=== PATIENT | male | born 1955 | race Caucasian/White ===

== ENCOUNTER 2017-03-18 10:51 | Emergency (ER) | payer MEDICARE, MEDICAID ==
[2017-03-18] MEDS: LIDOCAINE/MYLANTA 40 ML BTL PO (11:51)
[2017-03-18 12:09] LABS: ADD UMIC YES; UR ASCORBIC ACID NEGATIVE (NEGATIVE); UR BILIRUBIN (Dip) NEGATIVE (NEGATIVE); UR BLOOD (Dip) NEGATIVE (NEGATIVE); UR CLARITY CLEAR (CLEAR); UR COLOR YELLOW (YELLOW); UR GLUCOSE (Dip) 3+ mg/dL (NEGATIVE); UR KETONES (Dip) TRACE mg/dL (NEGATIVE); UR LEUKOCYTE ESTERASE (Dip) NEGATIVE Leu/ul (NEGATIVE); UR NITRITE (Dip) NEGATIVE (NEGATIVE); UR RBC 1 /HPF (0-5); UR SPECIFIC GRAVITY (Dip) 1.029 (1.003-1.030); UR TOTAL PROTEIN (Dip) 1+ mg/dl (NEGATIVE); UR UROBILINOGEN (Dip) NEGATIVE (NEGATIVE); UR WBC 5 /HPF (0-5)
[2017-03-18 12:12] LABS: ADD MAN DIFF? NO
[2017-03-18 12:18] LABS: BASOPHIL # 0.1 10^3/ul (0.0-0.1); BASOPHILS % 0.4 % (0.0-2.0); EOSINOPHILS # 0.1 10^3/ul (0.0-0.5); EOSINOPHILS % 0.9 % (0.0-7.0); HEMATOCRIT 41.3 % (42.0-52.0); HEMOGLOBIN 14.6 g/dl (14.0-18.0); LYMPHOCYTES # 2.8 10^3/ul (0.8-2.9); LYMPHOCYTES % 17.9 % (15.0-51.0); MEAN CORPUSCULAR HGB CONC 35.4 g/dl (32.0-37.0); MEAN CORPUSCULAR VOLUME 81.9 fl (82.0-101.0); MEAN PLATELET VOLUME 10.9 fl (7.4-10.4); MONOCYTE # 1.1 10^3/ul (0.3-0.9); NEUTROPHIL # 11.2 10^3/ul (1.6-7.5); NEUTROPHILS % 73.2 % (39.0-77.0); PLATELET COUNT 292 10^3/UL (140-415); RED BLOOD COUNT 5.04 10^6/ul (4.70-6.10); RED CELL DISTRIBUTION WIDTH 11.9 % (11.5-14.5)
[2017-03-18 12:18] LABS: WHITE BLOOD COUNT 15.3 10^3/ul (4.8-10.8)
[2017-03-18 12:37] LABS: ALANINE AMINOTRANSFERASE 39 IU/L (13-69); ALBUMIN 3.8 g/dl (3.3-4.9); ALBUMIN/GLOBULIN RATIO 1.05; ALKALINE PHOSPHATASE 152 IU/L (42-121); ANION GAP 16 (8-16); ASPARTATE AMINO TRANSFERASE 14 IU/L (15-46); BILIRUBIN,INDIRECT 0.2 mg/dl (0-1.1); BILIRUBIN,TOTAL 0.2 mg/dl (0.2-1.3); BLOOD UREA NITROGEN 16 mg/dl (7-20); CALCIUM 9.6 mg/dl (8.4-10.2); CARBON DIOXIDE 23 mmol/L (21-31); CHLORIDE 100 mmol/L (97-110); CREATININE 0.73 mg/dl (0.61-1.24); GLUCOSE 380 mg/dl (70-220); LIPASE 250 U/L (23-300); POTASSIUM 4.5 mmol/L (3.5-5.1); SODIUM 134 mmol/L (135-144); TOTAL PROTEIN 7.4 g/dl (6.1-8.1)
[2017-03-18 12:52] LABS: TROPONIN-I < 0.012 ng/ml (0.00-0.12)
[2017-03-18] MEDS: INSULIN LISPRO 100 UNIT/ML VIAL SC (13:38)
== END 2017-03-18 14:25 | disposition home or self-care (01) ==
LOC: FTE 10:51
DX: E13.8 Other specified diabetes mellitus with unspecified complications (principal); N48.1 Balanitis; R10.13 Epigastric pain; R35.8 Other polyuria
CPT/HCPCS: 80053; 81001; 82962; 83690; 84484; 85025; 87086; 93005; 96372; 99284-25

== ENCOUNTER 2017-09-20 21:30 | Emergency (ER) | payer MEDICARE, OTHER | END 2017-09-20 23:11 | disposition left against medical advice (07) | LOC: FTE 23:11 → E/R 21:30 | DX: Z53.21 Procedure and treatment not carried out due to patient leaving prior to being seen by health care provider (principal) ==

== ENCOUNTER 2017-10-28 21:43 | Inpatient (IN) | payer MEDICARE, OTHER ==
[2017-10-29] MEDS: ALBUTEROL 0.5% (NEB) 2.5 MG/0.5 ML AMP INH (01:33)
[2017-10-29] MEDS: IPRATROPIUM (NEB) 0.5 MG/2.5 ML AMP INH (01:33)
[2017-10-29 01:41] LABS: ADD MAN DIFF? NO
[2017-10-29 01:42] LABS: WHITE BLOOD COUNT 12.2 10^3/ul (4.8-10.8)
[2017-10-29 01:42] LABS: BASOPHIL # 0.1 10^3/ul (0.0-0.1); BASOPHILS % 0.4 % (0.0-2.0); EOSINOPHILS # 0.3 10^3/ul (0.0-0.5); EOSINOPHILS % 2.3 % (0.0-7.0); HEMATOCRIT 41.7 % (42.0-52.0); LYMPHOCYTES # 3.6 10^3/ul (0.8-2.9); LYMPHOCYTES % 29.4 % (15.0-51.0); MEAN CORPUSCULAR HGB CONC 33.6 g/dl (32.0-37.0); MEAN CORPUSCULAR VOLUME 86.3 fl (82.0-101.0); NEUTROPHIL # 7.2 10^3/ul (1.6-7.5); NEUTROPHILS % 59.1 % (39.0-77.0); PLATELET COUNT 284 10^3/UL (140-415); RED BLOOD COUNT 4.83 10^6/ul (4.70-6.10); RED CELL DISTRIBUTION WIDTH 11.9 % (11.5-14.5)
[2017-10-29 02:05] LABS: ALANINE AMINOTRANSFERASE 27 IU/L (13-69); ALBUMIN 3.9 g/dl (3.3-4.9); ALBUMIN/GLOBULIN RATIO 1.21; ALKALINE PHOSPHATASE 85 IU/L (42-121); ANION GAP 13 (8-16); ASPARTATE AMINO TRANSFERASE 18 IU/L (15-46); BILIRUBIN,INDIRECT 0.3 mg/dl (0-1.1); BILIRUBIN,TOTAL 0.3 mg/dl (0.2-1.3); BLOOD UREA NITROGEN 19 mg/dl (7-20); CALCIUM 9.6 mg/dl (8.4-10.2); CARBON DIOXIDE 28 mmol/L (21-31); CHLORIDE 102 mmol/L (97-110); CREATININE 0.83 mg/dl (0.61-1.24); GLUCOSE 216 mg/dl (70-220); POTASSIUM 4.7 mmol/L (3.5-5.1); SODIUM 138 mmol/L (135-144); TOTAL PROTEIN 7.1 g/dl (6.1-8.1)
[2017-10-29 02:15] LABS: TROPONIN-I 0.057 ng/ml (0.000-0.120)
[2017-10-29] MEDS: ASPIRIN 81 MG TAB PO ×2 (03:37→08:55)
[2017-10-29] MEDS: METHYLPREDNISOLONE 125 MG INJ IV ×2 (03:37→08:55)
[2017-10-29] MEDS: SOD CHLORIDE 0.9% 500 ML IV (03:38)
[2017-10-29] MEDS ORDERED: ALBUTEROL/IPRATROPIUM (NEB) 3 ML AMP HHN (06:30)
[2017-10-29] MEDS ORDERED: ACETAMINOPHEN 325 MG TAB PO (06:30)
[2017-10-29] MEDS ORDERED: ROPINIROLE HCL 2 MG PO (06:30)
[2017-10-29] MEDS ORDERED: NACL 0.9% 3 ML SYG IV (06:30)
[2017-10-29] MEDS ORDERED: ONDANSETRON 4 MG INJ IV (06:30)
[2017-10-29] MEDS: NITROGLYCERIN (SL) 0.4 MG TAB SL ×5 (07:22→22:52)
[2017-10-29 08:18] LABS: CREATINE KINASE 63 IU/L (23-200)
[2017-10-29 08:19] LABS: AADO2 Arterial 134.9 mmHg (7.0-24.0); Allen Test ACCEPTAB; Arterial Base Excess -1.9 mmol/L (-3.0-3); Arterial Blood Gas Oxygen Sat 98.7 mmHG (95.0-98.0); Arterial COHb 0.6 % (0.0-3.0); Arterial Fraction of Oxyhgb 97.9 % (93.0-99.0); Arterial HCO3 23.4 mmol/L (22.0-26.0); Arterial MetHb 0.2 % (0.0-1.5); Arterial pCO2 41.7 mmhg (35-45); MODE MASK - SIMPLE; Site Left Radial
[2017-10-29 08:31] LABS: CK-MB 1.28 ng/ml (0.0-2.4); TROPONIN-I 0.042 ng/ml (0.000-0.120)
[2017-10-29] MEDS: ENOXAPARIN 40 MG/0.4 ML SYG SC (08:55)
[2017-10-29] MEDS: FLUVOXAMINE 50 MG TAB PO (08:56)
[2017-10-29] MEDS: BUDESONIDE (NEB) 0.5MG/2ML AMP HHN ×2 (10:00→21:38)
[2017-10-29] MEDS: INSULIN GLARGINE [LANTus] (100 UNITS/ML) SYG SC (10:53)
[2017-10-29 11:04] LABS: HEMOGLOBIN A1C 10.6 % (0-5.9)
[2017-10-29] MEDS: INSULIN ASPART [NOVOLOG] 3 ML PEN SC ×5 (11:04→20:31)
[2017-10-29] MEDS: PANTOPRAZOLE (EC) 40 MG TAB PO (12:53)
[2017-10-29] MEDS: LORAZEPAM 2 MG INJ IV ×2 (12:53→19:27)
[2017-10-29 12:56] LABS: CREATINE KINASE 61 IU/L (23-200)
[2017-10-29 13:09] LABS: CK INDEX 1.8; TROPONIN-I 0.022 ng/ml (0.000-0.120)
[2017-10-29] MEDS: ALBUTEROL/IPRATROPIUM (NEB) 3 ML AMP HHN ×2 (15:21→21:38)
[2017-10-29] MEDS: traZODone 50 MG TAB PO (20:29)
[2017-10-29] MEDS: ATORVASTATIN 20 MG TAB PO (20:29)
[2017-10-29] MEDS ORDERED: NON-FORMULARY/PATIENT OWN MED (Simvastatin* (Zocor*) 40 MG) PO (21:00)
[2017-10-29] MEDS: ROPINIROLE 1 MG TAB PO (23:30)
[2017-10-30] MEDS: ACCU-CHEK XX (02:00)
[2017-10-30] MEDS: INSULIN ASPART [NOVOLOG] 3 ML PEN SC ×8 (02:30→20:43)
[2017-10-30] MEDS: NITROGLYCERIN (SL) 0.4 MG TAB SL ×5 (05:11→20:22)
[2017-10-30 06:38] LABS: ADD MAN DIFF? NO
[2017-10-30 06:48] LABS: ABNORMAL IP MESSAGE 1; BASOPHILS % 0.2 % (0.0-2.0); HEMATOCRIT 40.2 % (42.0-52.0); HEMOGLOBIN 14.1 g/dl (14.0-18.0); LYMPHOCYTES # 2.5 10^3/ul (0.8-2.9); LYMPHOCYTES % 9.7 % (15.0-51.0); MEAN CORPUSCULAR HEMOGLOBIN 29.9 pg (29.0-33.0); MEAN CORPUSCULAR HGB CONC 35.1 g/dl (32.0-37.0); MEAN CORPUSCULAR VOLUME 85.4 fl (82.0-101.0); MEAN PLATELET VOLUME 10.6 fl (7.4-10.4); MONOCYTE # 1.6 10^3/ul (0.3-0.9); MONOCYTES % 6.1 % (0.0-11.0); NEUTROPHILS % 82.6 % (39.0-77.0); PLATELET COUNT 340 10^3/UL (140-415); POSITIVE DIFF @See below; RED BLOOD COUNT 4.71 10^6/ul (4.70-6.10); RED CELL DISTRIBUTION WIDTH 11.9 % (11.5-14.5)
[2017-10-30 06:48] LABS: WHITE BLOOD COUNT 25.5 10^3/ul (4.8-10.8)
[2017-10-30] MEDS: PANTOPRAZOLE (EC) 40 MG TAB PO (07:00)
[2017-10-30] MEDS: ROPINIROLE 1 MG TAB PO ×4 (07:29→23:37)
[2017-10-30 07:32] LABS: ALANINE AMINOTRANSFERASE 24 IU/L (13-69); ALBUMIN 3.7 g/dl (3.3-4.9); ALBUMIN/GLOBULIN RATIO 1.27; ALKALINE PHOSPHATASE 84 IU/L (42-121); ANION GAP 13 (8-16); ASPARTATE AMINO TRANSFERASE 21 IU/L (15-46); BILIRUBIN,INDIRECT 0.4 mg/dl (0-1.1); BILIRUBIN,TOTAL 0.4 mg/dl (0.2-1.3); BLOOD UREA NITROGEN 20 mg/dl (7-20); CALCIUM 9.2 mg/dl (8.4-10.2); CARBON DIOXIDE 22 mmol/L (21-31); CHLORIDE 104 mmol/L (97-110); CHOL/HDL RATIO 5.3 RATIO; CHOLESTEROL 215 mg/dl (100-200); CREATININE 0.74 mg/dl (0.61-1.24); GLUCOSE 289 mg/dl (70-220); HDL CHOLESTEROL 40 mg/dl (30-78); LDL CHOLESTEROL,CALCULATED 144 mg/dl; MAGNESIUM 2.1 mg/dl (1.7-2.5); POTASSIUM 4.5 mmol/L (3.5-5.1); SODIUM 134 mmol/L (135-144); TOTAL PROTEIN 6.6 g/dl (6.1-8.1); TRIGLYCERIDES 155 mg/dl (0-149)
[2017-10-30 07:34] LABS: HEMOGLOBIN A1C 10.3 % (0-5.9)
[2017-10-30 07:37] LABS: PHOSPHORUS 3.6 mg/dl (2.5-4.9)
[2017-10-30] MEDS: ASPIRIN 81 MG TAB PO (08:27)
[2017-10-30] MEDS: FLUVOXAMINE 50 MG TAB PO (08:27)
[2017-10-30] MEDS: METHYLPREDNISOLONE 125 MG INJ IV (08:28)
[2017-10-30] MEDS: ENOXAPARIN 40 MG/0.4 ML SYG SC (08:34)
[2017-10-30] MEDS: BUDESONIDE (NEB) 0.5MG/2ML AMP HHN ×2 (09:00→19:46)
[2017-10-30] MEDS: ALBUTEROL/IPRATROPIUM (NEB) 3 ML AMP HHN ×3 (09:50→19:46)
[2017-10-30] MEDS: LORAZEPAM 2 MG INJ IV ×2 (10:28→20:29)
[2017-10-30] MEDS: morphine 2 MG INJ IV (17:19)
[2017-10-30] MEDS: ATORVASTATIN 20 MG TAB PO (20:28)
[2017-10-30] MEDS: traZODone 50 MG TAB PO (20:29)
[2017-10-31] MEDS: ACCU-CHEK XX (02:00)
[2017-10-31] MEDS: PANTOPRAZOLE (EC) 40 MG TAB PO (05:52)
[2017-10-31] MEDS: ROPINIROLE 1 MG TAB PO ×3 (05:52→17:28)
[2017-10-31 06:00] LABS: ADD MAN DIFF? NO
[2017-10-31 06:22] LABS: WHITE BLOOD COUNT 19.7 10^3/ul (4.8-10.8)
[2017-10-31 06:22] LABS: BASOPHIL # 0.1 10^3/ul (0.0-0.1); BASOPHILS % 0.3 % (0.0-2.0); EOSINOPHILS % 0.2 % (0.0-7.0); HEMATOCRIT 41.7 % (42.0-52.0); HEMOGLOBIN 14.3 g/dl (14.0-18.0); LYMPHOCYTES % 20.4 % (15.0-51.0); MEAN CORPUSCULAR HEMOGLOBIN 29.3 pg (29.0-33.0); MEAN CORPUSCULAR HGB CONC 34.3 g/dl (32.0-37.0); MEAN CORPUSCULAR VOLUME 85.5 fl (82.0-101.0); MEAN PLATELET VOLUME 10.2 fl (7.4-10.4); MONOCYTE # 1.2 10^3/ul (0.3-0.9); MONOCYTES % 6.3 % (0.0-11.0); NEUTROPHIL # 14.1 10^3/ul (1.6-7.5); NEUTROPHILS % 71.1 % (39.0-77.0); PLATELET COUNT 307 10^3/UL (140-415); RED BLOOD COUNT 4.88 10^6/ul (4.70-6.10); RED CELL DISTRIBUTION WIDTH 12.1 % (11.5-14.5)
[2017-10-31 06:41] LABS: ALANINE AMINOTRANSFERASE 31 IU/L (13-69); ALBUMIN 3.7 g/dl (3.3-4.9); ALBUMIN/GLOBULIN RATIO 1.19; ALKALINE PHOSPHATASE 78 IU/L (42-121); ANION GAP 12 (8-16); ASPARTATE AMINO TRANSFERASE 31 IU/L (15-46); BILIRUBIN,INDIRECT 0.4 mg/dl (0-1.1); BILIRUBIN,TOTAL 0.4 mg/dl (0.2-1.3); BLOOD UREA NITROGEN 20 mg/dl (7-20); CALCIUM 9.1 mg/dl (8.4-10.2); CARBON DIOXIDE 25 mmol/L (21-31); CHLORIDE 104 mmol/L (97-110); GLUCOSE 181 mg/dl (70-220); POTASSIUM 4.2 mmol/L (3.5-5.1); SODIUM 137 mmol/L (135-144); TOTAL PROTEIN 6.8 g/dl (6.1-8.1)
[2017-10-31] MEDS: INSULIN ASPART [NOVOLOG] 3 ML PEN SC ×8 (07:38→21:00)
[2017-10-31] MEDS: INSULIN GLARGINE [LANTus] (100 UNITS/ML) SYG SC (07:45)
[2017-10-31] MEDS: BUDESONIDE (NEB) 0.5MG/2ML AMP HHN ×2 (08:04→19:25)
[2017-10-31] MEDS: predniSONE 10 MG TAB PO (08:08)
[2017-10-31] MEDS: ASPIRIN 81 MG TAB PO (08:08)
[2017-10-31] MEDS: FLUVOXAMINE 50 MG TAB PO (08:08)
[2017-10-31] MEDS: ENOXAPARIN 40 MG/0.4 ML SYG SC (08:12)
[2017-10-31] MEDS: NITROGLYCERIN (SL) 0.4 MG TAB SL ×2 (08:15→10:37)
[2017-10-31] MEDS: ALBUTEROL/IPRATROPIUM (NEB) 3 ML AMP HHN ×3 (08:17→19:25)
[2017-10-31] MEDS: morphine 2 MG INJ IV (08:55)
[2017-10-31] MEDS: LORAZEPAM 2 MG INJ IV (12:22)
[2017-10-31] MEDS: ISOSORBIDE DINITRATE 10 MG TAB PO ×2 (13:43→20:27)
[2017-10-31] MEDS ORDERED: morphine LIQ (10 MG/5 ML) CUP PO (17:00)
[2017-10-31] MEDS: traZODone 50 MG TAB PO (20:26)
[2017-10-31] MEDS: ATORVASTATIN 40 MG TAB PO (20:27)
[2017-10-31] MEDS: METOPROLOL 25 MG TAB PO (20:27)
[2017-11-01] MEDS: ROPINIROLE 1 MG TAB PO ×4 (01:29→17:41)
[2017-11-01] MEDS: ACCU-CHEK XX (02:47)
[2017-11-01] MEDS: PANTOPRAZOLE (EC) 40 MG TAB PO (05:43)
[2017-11-01] MEDS: BUDESONIDE (NEB) 0.5MG/2ML AMP HHN ×2 (07:53→19:35)
[2017-11-01] MEDS: ALBUTEROL/IPRATROPIUM (NEB) 3 ML AMP HHN ×3 (07:53→19:35)
[2017-11-01] MEDS: INSULIN ASPART [NOVOLOG] 3 ML PEN SC ×7 (08:00→21:08)
[2017-11-01] MEDS: INSULIN GLARGINE [LANTus] (100 UNITS/ML) SYG SC (08:19)
[2017-11-01] MEDS: ISOSORBIDE DINITRATE 10 MG TAB PO ×3 (09:00→20:39)
[2017-11-01] MEDS: FLUVOXAMINE 50 MG TAB PO (12:07)
[2017-11-01] MEDS: predniSONE 10 MG TAB PO (12:07)
[2017-11-01] MEDS: ASPIRIN 81 MG TAB PO (12:07)
[2017-11-01] MEDS: METOPROLOL 25 MG TAB PO ×2 (12:08→20:39)
[2017-11-01] MEDS: traZODone 50 MG TAB PO (20:39)
[2017-11-01] MEDS: ATORVASTATIN 40 MG TAB PO (20:39)
[2017-11-01] MEDS: ENOXAPARIN 100 MG/ML SYG SC (20:48)
[2017-11-02] MEDS: ROPINIROLE 1 MG TAB PO ×4 (00:07→19:10)
[2017-11-02] MEDS: ACCU-CHEK XX (02:00)
[2017-11-02 05:47] LABS: ADD MAN DIFF? NO
[2017-11-02 06:01] LABS: ABNORMAL IP MESSAGE 1; BASOPHIL # 0.1 10^3/ul (0.0-0.1); BASOPHILS % 0.3 % (0.0-2.0); EOSINOPHILS # 0.2 10^3/ul (0.0-0.5); EOSINOPHILS % 0.7 % (0.0-7.0); HEMATOCRIT 41.3 % (42.0-52.0); HEMOGLOBIN 14.2 g/dl (14.0-18.0); LYMPHOCYTES # 5.1 10^3/ul (0.8-2.9); LYMPHOCYTES % 24.9 % (15.0-51.0); MEAN CORPUSCULAR HEMOGLOBIN 28.8 pg (29.0-33.0); MEAN CORPUSCULAR HGB CONC 34.4 g/dl (32.0-37.0); MEAN CORPUSCULAR VOLUME 83.8 fl (82.0-101.0); MEAN PLATELET VOLUME 10.4 fl (7.4-10.4); MONOCYTE # 1.4 10^3/ul (0.3-0.9); MONOCYTES % 6.9 % (0.0-11.0); NEUTROPHIL # 13.3 10^3/ul (1.6-7.5); NEUTROPHILS % 65.6 % (39.0-77.0); PLATELET COUNT 319 10^3/UL (140-415); POSITIVE DIFF @See below; RED BLOOD COUNT 4.93 10^6/ul (4.70-6.10); RED CELL DISTRIBUTION WIDTH 12.2 % (11.5-14.5)
[2017-11-02 06:01] LABS: WHITE BLOOD COUNT 20.3 10^3/ul (4.8-10.8)
[2017-11-02] MEDS: PANTOPRAZOLE (EC) 40 MG TAB PO (06:04)
[2017-11-02 06:27] LABS: ANION GAP 10 (8-16); BLOOD UREA NITROGEN 24 mg/dl (7-20); CALCIUM 9.4 mg/dl (8.4-10.2); CARBON DIOXIDE 26 mmol/L (21-31); CHLORIDE 103 mmol/L (97-110); CREATININE 0.86 mg/dl (0.61-1.24); GLUCOSE 171 mg/dl (70-220); POTASSIUM 4.2 mmol/L (3.5-5.1); SODIUM 135 mmol/L (135-144)
[2017-11-02 06:39] LABS: CK-MB 1.89 ng/ml (0.0-2.4)
[2017-11-02 06:58] LABS: PHOSPHORUS 4.3 mg/dl (2.5-4.9)
[2017-11-02 06:58] LABS: CK INDEX 3.6; CREATINE KINASE 52 IU/L (23-200)
[2017-11-02] MEDS: INSULIN ASPART [NOVOLOG] 3 ML PEN SC ×8 (07:58→20:46)
[2017-11-02] MEDS: INSULIN GLARGINE [LANTus] (100 UNITS/ML) SYG SC (08:01)
[2017-11-02] MEDS: ALBUTEROL/IPRATROPIUM (NEB) 3 ML AMP HHN ×3 (08:14→20:16)
[2017-11-02] MEDS: BUDESONIDE (NEB) 0.5MG/2ML AMP HHN ×2 (08:14→20:16)
[2017-11-02] MEDS: METOPROLOL 25 MG TAB PO ×2 (09:00→20:48)
[2017-11-02] MEDS: ASPIRIN 81 MG TAB PO ×2 (09:00)
[2017-11-02] MEDS: ENOXAPARIN 100 MG/ML SYG SC (09:00)
[2017-11-02] MEDS: predniSONE 5 MG TAB PO (12:14)
[2017-11-02] MEDS: FLUVOXAMINE 50 MG TAB PO (12:17)
[2017-11-02] MEDS: ISOSORBIDE DINITRATE 10 MG TAB PO ×3 (12:18→20:47)
[2017-11-02] MEDS: LORAZEPAM 2 MG INJ IV (13:10)
[2017-11-02] MEDS ORDERED: VERAPAMIL 5 MG INJ (15:29)
[2017-11-02] MEDS ORDERED: HEPARIN 1000 UNITS/NS (A-LINE) 1,000 ML (15:29)
[2017-11-02] MEDS ORDERED: HEPARIN 1000 UNITS/ML 10 ML INJ (15:29)
[2017-11-02] MEDS ORDERED: LIDOCAINE 1% (MDV) 10 ML INJ (15:29)
[2017-11-02] MEDS ORDERED: NITROGLYCERIN (IC) 100 MCG/ML INJ (15:29)
[2017-11-02] MEDS ORDERED: FENTAnyl 50 MCG/ML VIAL (15:30)
[2017-11-02] MEDS ORDERED: MIDAZOLAM 1 MG/ML 2 ML INJ (15:30)
[2017-11-02] MEDS ORDERED: TICAGRELOR 90 MG TABLET (17:11)
[2017-11-02] MEDS ORDERED: IODIXANOL LOCM 100 ML BTL (17:11)
[2017-11-02] MEDS ORDERED: ASPIRIN 325 MG TAB (17:11)
[2017-11-02] MEDS ORDERED: ONDANSETRON 4 MG INJ IV (17:30)
[2017-11-02] MEDS ORDERED: ACETAMINOPHEN 325 MG TAB PO (17:30)
[2017-11-02] MEDS ORDERED: ZOLPIDEM 5 MG TAB PO (17:30)
[2017-11-02] MEDS ORDERED: DIAZEPAM 2 MG TAB PO (17:30)
[2017-11-02] MEDS ORDERED: AL HYDROX/MG HYDROX/SIMETH 30 ML CUP PO (17:30)
[2017-11-02] MEDS: OXYCODONE/ACETAMINOPHEN (5/325) TAB PO (19:11)
[2017-11-02] MEDS: SOD CHLORIDE 0.9% 1,000 ML IV (19:44)
[2017-11-02] MEDS: TICAGRELOR 90 MG TABLET PO (20:47)
[2017-11-02] MEDS: ATORVASTATIN 40 MG TAB PO (20:47)
[2017-11-02] MEDS: traZODone 50 MG TAB PO (20:47)
[2017-11-03] MEDS: ROPINIROLE 1 MG TAB PO ×3 (00:13→11:45)
[2017-11-03] MEDS: ACCU-CHEK XX (01:23)
[2017-11-03] MEDS: PANTOPRAZOLE (EC) 40 MG TAB PO (06:19)
[2017-11-03] MEDS: INSULIN ASPART [NOVOLOG] 3 ML PEN SC ×4 (07:55→11:42)
[2017-11-03] MEDS: ALBUTEROL/IPRATROPIUM (NEB) 3 ML AMP HHN ×2 (07:55→13:46)
[2017-11-03] MEDS: BUDESONIDE (NEB) 0.5MG/2ML AMP HHN (08:02)
[2017-11-03] MEDS: HYDROCODONE/APAP (5/325) TAB GTB (08:06)
[2017-11-03] MEDS: INSULIN GLARGINE [LANTus] (100 UNITS/ML) SYG SC (08:11)
[2017-11-03 08:44] LABS: ADD MAN DIFF? NO
[2017-11-03 08:52] LABS: BASOPHIL # 0.1 10^3/ul (0.0-0.1); BASOPHILS % 0.4 % (0.0-2.0); EOSINOPHILS # 0.3 10^3/ul (0.0-0.5); HEMATOCRIT 41.6 % (42.0-52.0); HEMOGLOBIN 14.3 g/dl (14.0-18.0); LYMPHOCYTES # 3.9 10^3/ul (0.8-2.9); LYMPHOCYTES % 25.4 % (15.0-51.0); MEAN CORPUSCULAR HGB CONC 34.4 g/dl (32.0-37.0); MEAN CORPUSCULAR VOLUME 84.4 fl (82.0-101.0); MEAN PLATELET VOLUME 10.3 fl (7.4-10.4); MONOCYTES % 6.7 % (0.0-11.0); NEUTROPHIL # 9.5 10^3/ul (1.6-7.5); NEUTROPHILS % 62.7 % (39.0-77.0); PLATELET COUNT 295 10^3/UL (140-415); RED BLOOD COUNT 4.93 10^6/ul (4.70-6.10); RED CELL DISTRIBUTION WIDTH 12.3 % (11.5-14.5)
[2017-11-03 08:52] LABS: WHITE BLOOD COUNT 15.2 10^3/ul (4.8-10.8)
[2017-11-03 09:10] LABS: PHOSPHORUS 4.7 mg/dl (2.5-4.9)
[2017-11-03 09:10] LABS: MAGNESIUM 1.9 mg/dl (1.7-2.5)
[2017-11-03 09:12] LABS: ANION GAP 11 (8-16); BLOOD UREA NITROGEN 20 mg/dl (7-20); CALCIUM 8.8 mg/dl (8.4-10.2); CARBON DIOXIDE 24 mmol/L (21-31); CHLORIDE 105 mmol/L (97-110); CREATININE 0.89 mg/dl (0.61-1.24); GLUCOSE 127 mg/dl (70-220); POTASSIUM 4.1 mmol/L (3.5-5.1); SODIUM 136 mmol/L (135-144)
[2017-11-03] MEDS: FLUVOXAMINE 50 MG TAB PO (09:25)
[2017-11-03] MEDS: ISOSORBIDE DINITRATE 10 MG TAB PO ×2 (09:27→13:21)
[2017-11-03] MEDS: ASPIRIN 81 MG TAB PO (09:27)
[2017-11-03] MEDS: METOPROLOL 25 MG TAB PO (09:27)
[2017-11-03] MEDS: TICAGRELOR 90 MG TABLET PO (09:28)
[2017-11-03] MEDS: ENOXAPARIN 40 MG/0.4 ML SYG SC (09:29)
== END 2017-11-03 16:55 | disposition home or self-care (01) | DRG 247 ==
LOC: E/R 21:43 → TEL 11-02 15:15 → 6WM 10-29 02:36
PROC: 027135Z Dilation of Coronary Artery, Two Arteries with Two Drug-eluting Intraluminal Devices, Percutaneous Approach (ICD-10-PCS; principal; 2017-11-02 15:42)
PROC: 4A023N7 Measurement of Cardiac Sampling and Pressure, Left Heart, Percutaneous Approach (ICD-10-PCS; 2017-11-02 15:42)
PROC: B2011ZZ Plain Radiography of Multiple Coronary Arteries using Low Osmolar Contrast (ICD-10-PCS; 2017-11-02 15:42)
DX: I21.4 Non-ST elevation (NSTEMI) myocardial infarction (principal); J44.1 Chronic obstructive pulmonary disease with (acute) exacerbation; I25.119 Atherosclerotic heart disease of native coronary artery with unspecified angina pectoris; I10 Essential (primary) hypertension; E66.9 Obesity, unspecified; Z68.35 Body mass index [BMI] 35.0-35.9, adult; E11.9 Type 2 diabetes mellitus without complications; E78.5 Hyperlipidemia, unspecified; Z87.891 Personal history of nicotine dependence
CPT/HCPCS: 36600; 71045; 78451; 80048; 80053; 80061; 82550; 82553; 82803; 82962; 83036; 83735; 84100; 84443; 84484; 85025; 92929; 93005; 93306; 93458; 94640; 94644; 94664; 99285-25

== ENCOUNTER 2018-01-16 12:39 | Observation (INO) | payer MEDICARE, OTHER ==
[2018-01-16 13:37] LABS: ADD MAN DIFF? NO
[2018-01-16 13:42] LABS: BASOPHIL # 0.1 10^3/ul (0.0-0.1); BASOPHILS % 0.6 % (0.0-2.0); EOSINOPHILS # 0.2 10^3/ul (0.0-0.5); EOSINOPHILS % 1.6 % (0.0-7.0); HEMATOCRIT 39.9 % (42.0-52.0); HEMOGLOBIN 13.8 g/dl (14.0-18.0); LYMPHOCYTES % 18.8 % (15.0-51.0); MEAN CORPUSCULAR HEMOGLOBIN 29.4 pg (29.0-33.0); MEAN CORPUSCULAR HGB CONC 34.6 g/dl (32.0-37.0); MEAN CORPUSCULAR VOLUME 84.9 fl (82.0-101.0); MEAN PLATELET VOLUME 10.9 fl (7.4-10.4); MONOCYTE # 0.7 10^3/ul (0.3-0.9); MONOCYTES % 6.7 % (0.0-11.0); NEUTROPHIL # 7.7 10^3/ul (1.6-7.5); NEUTROPHILS % 71.5 % (39.0-77.0); PLATELET COUNT 261 10^3/UL (140-415); RED CELL DISTRIBUTION WIDTH 11.9 % (11.5-14.5)
[2018-01-16 13:42] LABS: WHITE BLOOD COUNT 10.8 10^3/ul (4.8-10.8)
[2018-01-16 14:01] LABS: INR 0.97; PARTIAL THROMBOPLASTIN TIME 25.8 Sec (23.0-35.0)
[2018-01-16 14:09] LABS: ALANINE AMINOTRANSFERASE 27 IU/L (13-69); ALBUMIN 3.6 g/dl (3.3-4.9); ALBUMIN/GLOBULIN RATIO 1.24; ALKALINE PHOSPHATASE 101 IU/L (42-121); ANION GAP 11 (5-13); ASPARTATE AMINO TRANSFERASE 16 IU/L (15-46); BILIRUBIN,INDIRECT 0.4 mg/dl (0-1.1); BILIRUBIN,TOTAL 0.4 mg/dl (0.2-1.3); BLOOD UREA NITROGEN 15 mg/dl (7-20); CARBON DIOXIDE 23 mmol/L (21-31); CHLORIDE 105 mmol/L (97-110); CREATININE 0.68 mg/dl (0.61-1.24); GLUCOSE 324 mg/dl (70-220); POTASSIUM 4.3 mmol/L (3.5-5.1); SODIUM 139 mmol/L (135-144); TOTAL PROTEIN 6.5 g/dl (6.1-8.1)
[2018-01-16 14:20] LABS: B-TYPE NATRIURETIC PEPTIDE 49 PG/ML (0-125); TROPONIN-I < 0.012 ng/ml (0.000-0.120)
[2018-01-16] MEDS ORDERED: NITROGLYCERIN (SL) 0.4 MG TAB SL (15:30)
[2018-01-16] MEDS ORDERED: ZOLPIDEM 5 MG TAB PO (15:30)
[2018-01-16] MEDS ORDERED: NACL 0.9% 3 ML SYG IV (15:30)
[2018-01-16] MEDS ORDERED: morphine 2 MG INJ IV (15:30)
[2018-01-16] MEDS ORDERED: ACETAMINOPHEN 325 MG TAB PO (15:30)
[2018-01-16] MEDS ORDERED: HYDROCODONE/APAP (5/325) TAB PO (15:30)
[2018-01-16] MEDS ORDERED: GLUCOSE GEL 15 GRAM TUBE PO ×2 (16:00)
[2018-01-16] MEDS ORDERED: ALBUTEROL/IPRATROPIUM (NEB) 3 ML AMP HHN (16:00)
[2018-01-16] MEDS ORDERED: GLUCOSE GEL 15 GRAM TUBE BUCCAL (16:00)
[2018-01-16] MEDS ORDERED: DEXTROSE 50% 50 ML SYRINGE IV ×2 (16:00)
[2018-01-16] MEDS ORDERED: GLUCAGON 1 MG INJ IM (16:00)
[2018-01-16] MEDS: ASPIRIN 81 MG TAB PO (16:31)
[2018-01-16] MEDS: FUROSEMIDE 40 MG INJ IV (16:32)
[2018-01-16] MEDS: NITROGLYCERIN 2% 1 GM OINT PKT TD (16:32)
[2018-01-16] MEDS: INSULIN ASPART [NOVOLOG] 3 ML PEN SC ×3 (19:00→23:01)
[2018-01-16] MEDS: ATORVASTATIN 40 MG TAB PO (22:45)
[2018-01-16] MEDS: INSULIN GLARGINE [LANTus] (100 UNITS/ML) SYG SC (22:45)
[2018-01-16] MEDS: traZODone 50 MG TAB PO (22:47)
[2018-01-16] MEDS: METOPROLOL 25 MG TAB PO (22:48)
[2018-01-16] MEDS: ISOSORBIDE DINITRATE 10 MG TAB PO (22:48)
[2018-01-16] MEDS: TICAGRELOR 90 MG TABLET PO (22:50)
[2018-01-17 01:12] LABS: TROPONIN-I < 0.012 ng/ml (0.000-0.120)
[2018-01-17] MEDS ORDERED: ROPINIROLE 1 MG TAB PO (01:12)
[2018-01-17] MEDS: ROPINIROLE 1 MG TAB PO ×5 (01:59→23:42)
[2018-01-17] MEDS ORDERED: ACCU-CHEK XX (02:00)
[2018-01-17] MEDS: ACCU-CHEK XX (02:10)
[2018-01-17 06:41] LABS: ADD MAN DIFF? NO
[2018-01-17 06:49] LABS: BASOPHILS % 0.4 % (0.0-2.0); EOSINOPHILS # 0.2 10^3/ul (0.0-0.5); HEMATOCRIT 42.9 % (42.0-52.0); HEMOGLOBIN 14.3 g/dl (14.0-18.0); LYMPHOCYTES # 2.5 10^3/ul (0.8-2.9); LYMPHOCYTES % 23.8 % (15.0-51.0); MEAN CORPUSCULAR HEMOGLOBIN 28.8 pg (29.0-33.0); MEAN CORPUSCULAR HGB CONC 33.3 g/dl (32.0-37.0); MEAN CORPUSCULAR VOLUME 86.5 fl (82.0-101.0); MEAN PLATELET VOLUME 10.9 fl (7.4-10.4); MONOCYTE # 0.8 10^3/ul (0.3-0.9); MONOCYTES % 7.4 % (0.0-11.0); NEUTROPHILS % 65.7 % (39.0-77.0); PLATELET COUNT 271 10^3/UL (140-415); RED BLOOD COUNT 4.96 10^6/ul (4.70-6.10)
[2018-01-17 06:49] LABS: WHITE BLOOD COUNT 10.6 10^3/ul (4.8-10.8)
[2018-01-17 06:59] LABS: HEMOGLOBIN A1C 10.1 % (0-5.9)
[2018-01-17 07:22] LABS: TROPONIN-I < 0.012 ng/ml (0.000-0.120)
[2018-01-17 08:05] LABS: BLOOD UREA NITROGEN 18 mg/dl (7-20); CALCIUM 9.3 mg/dl (8.4-10.2); CHLORIDE 104 mmol/L (97-110); CREATININE 0.79 mg/dl (0.61-1.24); MAGNESIUM 1.9 mg/dl (1.7-2.5); PHOSPHORUS 4.1 mg/dl (2.5-4.9); POTASSIUM 4.6 mmol/L (3.5-5.1); SODIUM 137 mmol/L (135-144)
[2018-01-17 08:07] LABS: ANION GAP 9 (5-13); CARBON DIOXIDE 24 mmol/L (21-31); GLUCOSE 267 mg/dl (70-220)
[2018-01-17] MEDS: ISOSORBIDE DINITRATE 10 MG TAB PO ×3 (08:20→21:16)
[2018-01-17] MEDS: ASPIRIN 81 MG TAB PO (08:20)
[2018-01-17] MEDS: METOPROLOL 25 MG TAB PO ×2 (08:21→21:17)
[2018-01-17] MEDS: FLUVOXAMINE 50 MG TAB PO (08:21)
[2018-01-17] MEDS: FUROSEMIDE 40 MG INJ IV (08:22)
[2018-01-17] MEDS: INSULIN ASPART [NOVOLOG] 3 ML PEN SC ×7 (08:40→21:24)
[2018-01-17] MEDS: TICAGRELOR 90 MG TABLET PO ×2 (08:42→21:19)
[2018-01-17] MEDS: INFLUENZA VIRUS VACCINE 0.5 ML (DISPENSING) IM* (11:38)
[2018-01-17] MEDS: ONDANSETRON 4 MG INJ IV (13:05)
[2018-01-17] MEDS: ATORVASTATIN 40 MG TAB PO (21:15)
[2018-01-17] MEDS: traZODone 50 MG TAB PO (21:16)
[2018-01-17] MEDS: INSULIN GLARGINE [LANTus] (100 UNITS/ML) SYG SC (21:36)
[2018-01-18] MEDS: ACCU-CHEK XX (02:00)
[2018-01-18] MEDS: ROPINIROLE 1 MG TAB PO ×2 (06:47→12:20)
[2018-01-18 07:14] LABS: ANION GAP 10 (5-13); BLOOD UREA NITROGEN 16 mg/dl (7-20); CALCIUM 8.9 mg/dl (8.4-10.2); CARBON DIOXIDE 23 mmol/L (21-31); CHLORIDE 102 mmol/L (97-110); Estimated GFR > 60 mL/min (>60); GLUCOSE 255 mg/dl (70-220); POTASSIUM 4.1 mmol/L (3.5-5.1); SODIUM 135 mmol/L (135-144)
[2018-01-18] MEDS: INSULIN ASPART [NOVOLOG] 3 ML PEN SC ×4 (08:16→12:25)
[2018-01-18] MEDS: ASPIRIN 81 MG TAB PO (08:41)
[2018-01-18] MEDS: DOCUSATE SODIUM 100 MG CAP PO (08:41)
[2018-01-18] MEDS: FLUVOXAMINE 50 MG TAB PO (08:42)
[2018-01-18] MEDS: TICAGRELOR 90 MG TABLET PO (08:47)
[2018-01-18] MEDS: FUROSEMIDE 40 MG INJ IV (08:47)
[2018-01-18] MEDS: ISOSORBIDE DINITRATE 10 MG TAB PO ×2 (08:48→12:20)
[2018-01-18] MEDS: METOPROLOL 25 MG TAB PO (08:49)
== END 2018-01-18 15:43 | disposition home or self-care (01) ==
LOC: E/R 12:39 → TEL 15:12
DX: R06.03 Acute respiratory distress (principal); I25.10 Atherosclerotic heart disease of native coronary artery without angina pectoris; E11.65 Type 2 diabetes mellitus with hyperglycemia; E66.9 Obesity, unspecified; J44.9 Chronic obstructive pulmonary disease, unspecified; I10 Essential (primary) hypertension; E78.5 Hyperlipidemia, unspecified; R07.9 Chest pain, unspecified; R94.31 Abnormal electrocardiogram [ECG] [EKG]; R06.00 Dyspnea, unspecified; Z95.5 Presence of coronary angioplasty implant and graft; Z68.37 Body mass index [BMI] 37.0-37.9, adult; Z79.4 Long term (current) use of insulin; Z79.899 Other long term (current) drug therapy; Z23 Encounter for immunization
CPT/HCPCS: 36415; 71045; 80048; 80053; 82962; 83036; 83735; 83880; 84100; 84484; 85025; 85610; 85730; 90686; 93005; 93306; 99285-25; G0378

== ENCOUNTER 2018-04-15 08:57 | Emergency (ER) | payer SELFPAY, MEDICARE, OTHER ==
[2018-04-15 10:01] LABS: ADD MAN DIFF? NO
[2018-04-15 10:03] LABS: BASOPHIL # 0.1 10^3/ul (0.0-0.1); BASOPHILS % 0.5 % (0.0-2.0); EOSINOPHILS # 0.2 10^3/ul (0.0-0.5); EOSINOPHILS % 2.3 % (0.0-7.0); HEMATOCRIT 40.8 % (42.0-52.0); LYMPHOCYTES # 2.2 10^3/ul (0.8-2.9); LYMPHOCYTES % 21.7 % (15.0-51.0); MEAN CORPUSCULAR HEMOGLOBIN 28.9 pg (29.0-33.0); MEAN CORPUSCULAR HGB CONC 34.3 g/dl (32.0-37.0); MEAN CORPUSCULAR VOLUME 84.1 fl (82.0-101.0); MEAN PLATELET VOLUME 10.2 fl (7.4-10.4); MONOCYTE # 1.1 10^3/ul (0.3-0.9); MONOCYTES % 11.2 % (0.0-11.0); NEUTROPHIL # 6.4 10^3/ul (1.6-7.5); NEUTROPHILS % 63.2 % (39.0-77.0); PLATELET COUNT 262 10^3/UL (140-415); RED BLOOD COUNT 4.85 10^6/ul (4.70-6.10)
[2018-04-15] MEDS: ALBUTEROL 0.5% (NEB) 2.5 MG/0.5 ML AMP INH (10:08)
[2018-04-15] MEDS: IPRATROPIUM (NEB) 0.5 MG/2.5 ML AMP INH (10:08)
[2018-04-15 10:24] LABS: INR 0.91; PROTIME 12.4 Sec (11.9-14.9)
[2018-04-15 10:25] LABS: ANION GAP 7 (5-13); BLOOD UREA NITROGEN 17 mg/dl (7-20); CALCIUM 9.2 mg/dl (8.4-10.2); CARBON DIOXIDE 26 mmol/L (21-31); CHLORIDE 102 mmol/L (97-110); CREATININE 0.73 mg/dl (0.61-1.24); Estimated GFR > 60 mL/min (>60); GLUCOSE 281 mg/dl (70-220); PARTIAL THROMBOPLASTIN TIME 25.2 Sec (23.0-35.0); POTASSIUM 4.4 mmol/L (3.5-5.1); SODIUM 135 mmol/L (135-144)
[2018-04-15 10:36] LABS: TROPONIN-I < 0.012 ng/ml (0.000-0.120)
[2018-04-15] MEDS: AZITHROMYCIN 250 MG TAB PO (13:39)
== END 2018-04-15 14:17 | disposition home or self-care (01) ==
LOC: E/R 08:57
DX: R04.2 Hemoptysis (principal); J20.8 Acute bronchitis due to other specified organisms; E11.9 Type 2 diabetes mellitus without complications; I10 Essential (primary) hypertension; J44.9 Chronic obstructive pulmonary disease, unspecified; I25.10 Atherosclerotic heart disease of native coronary artery without angina pectoris; I25.2 Old myocardial infarction; Z79.4 Long term (current) use of insulin; Z98.61 Coronary angioplasty status; Z87.891 Personal history of nicotine dependence; Z79.82 Long term (current) use of aspirin
CPT/HCPCS: 36415; 71045; 80048; 84484; 85025; 85610; 85730; 93005; 94644; 99285-25